=== PATIENT | female | born 1975 | race Caucasian/White ===

== ENCOUNTER 2024-12-15 11:31 | Emergency (ER) | payer BC, SELFPAY ==
--- NOTE | ~2024-12-15 | XR_ITS ---
EXAMINATION: XR chest 1V portable 12/15/2024 12:09 INDICATION: Shortness of breath and cough PROCEDURE: AP portable chest COMPARISON: No prior studies for comparison. FINDINGS: The lungs are clear. The cardiomediastinal silhouette is within normal limits. There are no pleural effusions. There is no pneumothorax suspected. IMPRESSION: 1: NO ACUTE CARDIOPULMONARY DISEASE. Reviewed, dictated and finalized at location B.
[2024-12-15 11:31] VITALS: BP 149/75; PULSE 90; RESP 20; TEMP 36.5; O2SAT 96
[2024-12-15 11:40] VITALS: O2SAT 97
--- NOTE | 2024-12-15 11:50 | ED_ITS ---
HPI - URI/Sore Throat General Chief Complaint: Upper Respiratory Infection Stated Complaint: shortness of breath; cough Time Seen by Provider: 12/15/24 11:50 Source: patient Mode of arrival: ambulatory Limitations: no limitations History of Present Illness HPI Narrative: 49-year-old female with a history of smoking presents to the ED with a 5 day history of -- cough which is nonproductive of sputum -- worsening shortness of breath /dyspnea on exertion no chest pain. No fever. She has had similar episode last year around this time. MD elicited complaint: cough Onset (ago): day(s) ( Five days) Consistency: constant Severity: moderate Able to tolerate fluids by mouth: Yes Exacerbating factors: exertion Relieving factors: nothing Associated symptoms: cough and shortness of breath Treatments prior to arrival: none Related Data Allergies Allergy/AdvReac Type Severity Reaction Status Date / Time No Known Allergies Allergy Mild Verified 12/15/24 11:49 Review of Systems 2 Review of Systems: All systems reviewed & are unremarkable except as noted in HPI and below Constitutional: Constitutional: Reports as per HPI and Reports no additional constitutional complaints Eyes: Eyes: Reports as per HPI and Reports no additional eye complaints ENT: Reports system reviewed and no additional complaints, except as documented and Reports as per HPI Cardiovascular: Cardiovascular: Reports as per HPI and Reports no additional cardiovascular complaints Respiratory: Respiratory: Reports as per HPI, Reports no additional respiratory complaints, Reports cough, Reports dyspnea and Reports wheezing Gastrointestinal: Gastrointestinal: Reports as per HPI and Reports no additional gastrointestinal complaints Genitourinary: Genitourinary: Reports no additional female genitourinary complaints and Reports as per HPI Musculoskeletal: Musculoskeletal: Reports no additional musculoskeletal complaints and Reports as per HPI Integumentary/Breasts: Skin/Breast: Reports system reviewed and no additional complaints, except as docu and Reports as per HPI Neurologic: Reports system reviewed and no additional complaints, except as documented and Reports as per HPI Psychiatric: Psychiatric: Reports no additional psychiatric complaints and Reports as per HPI Endocrine: Endocrine: Reports no additional endocrine complaints and Reports as per HPI Hematologic/Lymphatic: Hematologic/Lymphatic: Reports no additional hematologic/lymphatic complaints and Reports as per HPI Allergic/Immunologic: Allergic/Immunologic: Reports no additional allergic/immunologic complaints and Reports as per HPI [facility] Social History Social History (Updated 12/15/24 @ 12:20 by Uri Doyle MD) Social History: smoker Smoking packs per day: 1 Smoking cigarettes per day: 20.0 Years smoked: 29 Smoking pack-years: 29.00 Smoking status: Current every day smoker Tobacco type: cigarettes Exam 2 Narrative: pulse 90 blood pressure 142/69 oxygen saturation of 96% on room air. Afebrile temperature of 37?. Const: General: ill appearing Orientation/consciousness: patient oriented x3 Limitations: no limitations HENMT: Head: normal to inspection Ears: external ears normal F oli/Nose/Sinus: Normal external nose present Face and sinus: normal facial exam Mouth: Yes Normal oral and palatal mucosa present Throat: posterior oropharynx normal Eyes: Conjunctivae: conjunctivae normal Pupils: Equal, round and reactive pupils present EOM: EOMs intact bilaterally Direct Ophthalmoscopy: no photophobia Neck: Neck: normal visual inspection, no lymphadenopathy and no meningeal signs Chest: Chest palpation & inspection: normal inspection of the chest Resp: Auscultation: wheezes and diminished lung sounds Cardio: Rate: regular rate Rhythm: regular rhythm GI: GI Palp: Yes Soft to palpation Auscultation: normal bowel sounds O ther: No tenderness/ rigidity / rebound. : General: Yes no CVA tenderness Back/Spine/Pelvis: Back: no CVA tenderness Skin: General skin exam: normal color Rashes: no rashes Wounds: no wounds Neuro: General: patient oriented x3, moves all extremities, no meningeal signs, no focal motor deficits and CN's II-XI intact bilaterally Cranial nerves: Yes Nystagmus not present Speech: normal speech Gait exam (Neuro): Normal gait present Extrem: General: normal to inspection and no clubbing, cyanosis or edema Psych: Mental Status: mental status grossly normal Affect: normal affect Attitude: cooperative Course Course Emergency Course: Upper respiratory tract infection COPD exacerbation-- x-ray did not show any acute findings. The patient was noted to have a normal troponin and D-dimer. Will treat with prednisone, Symbicort and antibiotics Vital Signs Vital signs: Vital Signs Temperature 36.5 C 12/15/24 11:31 Pulse Rate 90 12/15/24 11:31 Respiratory Rate 20 12/15/24 11:31 Blood Pressure 149/75 H 12/15/24 11:31 Pulse Oximetry 96 12/15/24 11:31 Oxygen Delivery Room Air 12/15/24 11:31 Temperature 37.0 C 12/15/24 12:15 Pulse Rate 84 12/15/24 12:23 Respiratory Rate 20 12/15/24 12:23 Blood Pressure 142/69 H 12/15/24 12:15 Pulse Oximetry 98 12/15/24 12:23 Oxygen Delivery Room Air 12/15/24 12:15 MDM - URI/Sore Throat MDM Narrative Medical decision making narrative: COPD exacerbation upper respiratory tract infection Differential Diagnosis Differential diagnosis: Likely viral infection Medical Records Attestation: I reviewed the patient's medical records. Lab Data Attestation: I reviewed the patient's lab results. 12/15/24 12:07 12/15/24 12:07 Labs: Lab Results 12/15/24 Range/Units 12:07 WBC 11.3 H (4.8-10.8) K/mm3 RBC 4.34 (4.20-5.40) M/mm3 Hgb 13.4 (12.0-15.0) g/dL Hct 40.9 (35.0-49.0) % MCV 94.2 (78.0-102.0) fL MCH 30.9 (27.0-31.0) pg MCHC 32.8 (32-36) g/dL RDW 12.1 (11.6-14.4) % Plt Count 312 (150-420) K/mm3 MPV 8.9 L (9.2-11.8) fl Immature Gran % (Auto) 0.4 H (0.0-0.0) % Neut % (Auto) 72.0 H (50.0-70.0) % Lymph % (Auto) 21.3 (18.0-42.0) % [place] % (Auto) 5.2 (2.0-11.0) % Eos % (Auto) 0.7 L (1.0-6.0) % Baso % (Auto) 0.4 (0.0-1.0) % Lymph # (Auto) 2.40 (1.10-4.50) K/mm3 [place] # (Auto) 0.59 (0.10-0.90) K/mm3 Eos # (Auto) 0.08 (0.02-0.50) K/mm3 Baso # (Auto) 0.05 (0.00-0.10) K/mm3 Abs Immat Gran (auto) 0.04 H (0.00-0.00) K/mm3 Absolute Neuts (auto) 8.09 H (1.70-7.20) K/mm3 Absolute Nucleated RBC 0.00 (0.00-0.00) K/mm3 Nucleated RBC % 0.0 (0-0.0) % D-Dimer 0.39 (0.19-0.50) mg/L Sodium 140 (137-145) mmol/L Potassium 4.2 (3.4-5.0) mmol/L Chloride 110 H (98-107) mmol/L Carbon Dioxide 24 (22-30) mmol/L Anion Gap 6 (4-12) mmol/L BUN 8 (7-17) mg/dL Creatinine 0.64 L (0.7-1.0) mg/dL Estim Creat Clear Calc 84 ml/min Estimated GFR > 60 (59 - ) Glucose 90 (65-110) mg/dL Calculated Osmolality 288 (285-295) mOsm/kg Lactic Acid 0.8 (0.4-2.0) mmol/L Calcium 8.9 (8.4-10.2) mg/dL Magnesium 1.9 (1.6-2.3) mg/dL Total Bilirubin 0.6 (0.2-1.3) mg/dL AST 18 (14-36) U/L ALT 14 (6-35) U/L Alkaline Phosphatase 78 (38-126) U/L Troponin I < 0.012 (0.000-0.034) ng/mL NT-Pro-B Natriuret Pep 246 H (19.9-100) pg/mL Total Protein 7.1 (6.3-8.2) g/dL Albumin 4.1 (3.5-5.1) g/dL TSH Pending Influenza A (RT-PCR) Negative (Negative) Influenza B (RT-PCR) Negative (Negative) RSV (RT-PCR) Negative (Negative) SARS-CoV-2 RNA (RT-PCR) Negative (Negative) ECG Data EKG #1: ECG completion date: 12/15/24 ECG completion time: 12:20 Interpretation: normal sinus rhythm. Normal axis. No ST-T wave changes noted. Discharge Plan Discharge Clinical Impression: COPD exacerbation Patient Disposition: Home Condition: Stable Instructions: Antibiotic Form, COPD (Chronic Obstructive Pulmonary Disease) (ED) Patient Language: Bhutanese Prescriptions: New azithromycin [Zithromax] 250 mg tablet See Rx Instructions .ROUTE .COMPLEX Qty: 6 0RF Rx Instructions: For 250 mg dose pack: take 500 mg today (day 1), then 250 mg for 4 days (days 2-5) albuterol sulfate [Ventolin HFA] 90 mcg/actuation HFA aerosol inhaler 2 puff inhalation QID PRN (Reason: shortness of breath or wheezing) Qty: 8.5 0RF prednisone 20 mg tablet 20 mg PO BID Qty: 10 0RF Follow-up/Referrals: Rodriguez West MD [Primary Care Provider] - Time of Disposition: 12:56
--- OUTSIDE RECORDS SUMMARY | 2024-12-15 11:54 | XMS_ITS | Data Portability ---
Author Organization [facility] [email or web address], Main Office Address [address] [place] [address] Assessment No assessment recorded. Plan of Treatment Reminders Order Date Submit Date Provider Last Modified By Organization Details Last Modified Time Details Appointments None recorded. Lab brca (1+2) mutation analysis, blood or tissue [address] (Lab), [address] [place], [address], 4 08:12:09 CBC w/ auto diff [address] (Lab), [address] [place], [address], 4 08:12:09 factor V mutation, blood or tissue [address] (Lab), [address] [place], [address], 4 08:12:09 unlisted lab - PT factor II mutation [address] (Lab), [address] [place], [address], 4 08:12:09 prothrombin time [address] (Lab), [address] [place], [address], 4 08:12:09 Referral genetic counselor referral - Please call patient to schedule an appointment . Thank you 2023 024 [email or web address] Shakira Avalos MD, [address], [address], 08:47:54 Procedures colonoscopy screening (PROC) 2023 024 [email or web address] [facility] (Pre-Screen), [address] [place], [address], 08:08:26 colonoscopy screening (PROC) - *Please call pt to schedule* 2023 024 [email or web address] 256 Destiney Schofield MD, [address] [place], [address], 09:58:49 Surgeries None recorded. Imaging None recorded. Medication Orders Golytely 236 gram-22.74 gram-6.74 gram-5.86 gram oral solution 2023 024 [facility], [address] [place], [address], 12:15:29 nicotine 14 mg/24 hr daily transdermal patch 2023 024 [email or web address] [facility][id number], [address] [place], [address], 12:08:13 Patient TargetsNo targets recorded. Patient Instructions Encounter Date Encounter Id Patient Instructions Last Modified By Organization Details Last Modified Time 02/25/2024 [id number] GOLYTELY [email or web address] Not available 12:14:43 PT NEEDS A SCREENING COLON . R/O POLYP . RECOMMEND A COLONOSOPY RISKS BENEFITS AND COMPLICATIONS WERE EXPLAINED TO PT . ( BLEEDING , PERFORATION , INFECTION , ) PT VERBALIZES UNDERSTANDING AND IS WILLING TO PROCEDE . [email or web address] Not available 02/25/2024 12:14:50 Reason for Referral Genetic Counselor Referral f or Family history of breast cancer fam hx of many types of cancers Please call patient to schedule an appointment. Thank you Referring Physician: Aydin Restrepo, Family Medicine, Encounter Date: 11/04/2023 Results Created Date Observation Date Name Description Value Unit Range Abnormal Flag Note LastModifiedBy Organization Detail LastModifiedTime 11/18/19 24 12/08/2023 BRCAS SURE COMPR EHENS TOOTIE PANEL preauthoriza tion Commen t Prior autho rizat ion revie w compl ete Not Available [facility] ([facility]) [address] [place], [address], 12/15/2023 20:11:03 11/18/19 24 12/15/2023 BRCAS SURE COMPR EHENS TOOTIE PANEL specimen type Commen t Whole Blood Not Available [facility] ([facility]) [address] [facility], [place], [address], 12/15/2023 20:11:03 11/18/19 24 12/15/2023 BRCAS SURE COMPR EHENS TOOTIE PANEL 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 GENE VARIA NT BRCA1 NEGAT TOOTIE No patho genic varia nts were ident ified . BRCA2 NEGAT TOOTIE No patho genic varia nts were ident ified . Not Available [facility] ([facility]) [address] [facility], [place], [address], 12/15/2023 20:11:03 11/18/19 24 12/15/2023 BRCAS SURE COMPR EHENS TOOTIE PANEL interpretati on Commen t No patho genic varia nts were ident ified . Not Available [facility] ([facility]) [address] [place], [address], 12/15/2023 20:11:03 11/18/19 24 12/15/2023 BRCAS SURE COMPR EHENS TOOTIE PANEL additional clinical inform. Commen t NCCN Guide lines When BRCA1 and BRCA2 resul ts are negat tootie, addit ional testi ng may be helpf ul for some patie nts. Guide lines from the Natio nal Compr ehens tootie Cance r Netamandoo rk(R) (NCCN (R)) recom mend consi ginette g germl ine jia ic testi ng for addit ional breas t, ovari an, prost ate, and/o r pancr eatic cance r susce ptibi lity genes in patie nts meeti ng any of the crite yana in the table below . To discu ss compr ehens tootie jia ic testi ng, a [facility] Jia ic Coord inato r is avail able at [phone]. Breas t cance r diagn osed <= age 50 Ovari an cance r, pancr eatic cance r, male breas t cance r, or metas tatic /high -risk prost ate cance r at any age Breas t cance r diagn osed at any age and one of the follo wing: To aid in PARP inhib itor or olapa rib treat ment Tripl e negat tootie breas t cance r Multi ple prima ry breas t cance rs >= 3 total diagn oses of breas t cance r in patie nt and/o r close blood relat suzanne Breas t or prost ate cance r diagn osed at any age and one of the follo wing: >= 1 close relat tootie with breas t cance r <= age 50 or with tripl e negat tootie breas t cance r at any age >= 1 close relat tootie with ovari an, pancr eatic , male breas t, or metas tatic /high -risk prost ate cance r >= 2 close relat suzanne with breas t or prost ate cance r at any age Ashke nazi Jewis h ances try Patie nts with a first or secon d degre e relat tootie meeti ng certa in crite yana in this table may consi gavin germl ine jia ic testi ng as well. Compl ete crite yana may be found at NCCN. org. Not Available [facility] ([facility]) [address] [facility], [place], [address], 12/15/2023 20:11:03 11/18/19 24 12/15/2023 BRCAS SURE COMPR EHENS TOOTIE PANEL recommendati ons Commen t Jia ic couns thuan is recom syeda d to discu ss the poten tial clini margoth and/o r repro ducti ve impli catio ns of these resul ts, as well as recom menda tions for testi ng famil y membe rs. To acces s [facility] Jia ic Couns francisco dailey e visit https ://[facility] .[facility] orp.c om/ge netic -coun cyndi g or call [phone]). Not Available [facility] (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) [address] [facility], [place], [address], 12/15/2023 20:11:03 11/18/19 24 12/15/2023 BRCAS SURE COMPR EHENS TOOTIE PANEL methods and limitations Commen t Next- gener ation seque ncing : Genom ic regio ns of inter est are selec junior using a custo m captu re reage nt for targe t enric hment and seque nced via the Illum hilton(R ) next gener ation seque ncing platf orm. Regio ns of inter est inclu de all exons and intro n/exo n junct ions (+/-2 0 nucle otide s) of the BRCA1 (NM_0 07287 .3) and BRCA2 (NM_0 10455 .3) genes . Regio ns of inter est may be exten ded to inclu de intro moon seque nces known to harbo r patho genic /like ly patho genic varia nts. Seque ncing reads are align ed with the human genom e refer ence GRCh3 7/hg1 9 build . Minim um mean cover age is 40X. Any segme nt faili ng minim um read depth cover age is rescu ed by bi-di recti onal Sange r seque ncing to compl ete seque nce shawn sis. Varia nts, inclu ding SNVs and CNVs, are ident ified using a custo m bioin forma tics pipel ine. Repor junior varia nts: Patho genic and likel y patho genic varia nts and varia nts of uncer tain signi fican ce (VUS) are repor junior. Non-d eleti on varia nts are speci fied using the numbe ring and nomen clatu re recom syeda d by the Human Genom e Varia tion Socie ty (HGVS , http: //www .hgvs .org/ ). Benig n varia nts are not repor junior. Varia nt class ifica tion and confi rmati on are consi stent with ACMG stand ards and guide lines (Rich ards, PMID: [phone]; Taty, PMID: 22648 774). Detai led varia nt class ifica tion infor matio n is avail able upon reque st. A varia nt of uncer tain signi fican ce (VUS) shoul d not be used in clini margoth decis ion makin g; a VUS is class ified based on inade quate or confl ictin g evide nce regar ding its patho genic ity or clini margoth relev ance. Limit ation s: Techn ologi es used do not detec t germl ine mosai cism and do not rule out the prese nce of large chrom osoma l aberr ation s, inclu ding rearr angem ents, gene fusio ns, or varia nts in regio ns or genes not inclu ded in this test, or possi ble inter / intra genic inter actio ns betwe en varia nts. Varia nt class ifica tion and/o r inter preta tion may vazquez e over time if more infor matio n becom es avail able. False posit tootie or false negat tootie resul ts may occur for reaso ns that inclu de: jia ic varia nts, pseud ogene inter feren ce, techn ical handl ing, blood trans fusio ns, bone marro w trans plant ation , misla belin g of sampl es, or misty eous repre senta tion of famil y relat ionsh ips. For heter ozygo us varia nts in the same gene the assay canno t deter mine wheth er they are on the same or diffe rent chrom osome ; to deter mine phase and clini margoth signi fican ce, rarel y, paren channing testi ng may be requi red. Exact break point s of exon- level delet ions/ dupli catio ns are not deter mined . The prese nce of an inher ited cance r syndr ome due to a diffe rent jia ic cause canno t be ruled out. Any inter preta tion shoul d be clini niki corre lated with infor matio n about the patie nts prese ntati on and relev ant famil y histo ry. This test was devel oped and its perfo rmanc e giancarlo cteri stics deter mined by [facility]. It has not been clear ed or appro meche by the Food and Drug Admin istra tion. Not Available [facility] ([facility]) [address] [facility], [place], [address], 12/15/2023 20:11:03 11/18/19 24 12/15/2023 BRCAS SURE COMPR EHENS TOOTIE PANEL references Commen t 1. NCCN Jia ic/Fa milia l High Risk Asses sment : Breas t, Ovari an, and Pancr eatic . Versi on 3. 2. Dariusz riggins et al. BRCA1 - and BRCA2 -Asso ciate d Hered itary Breas t and Ovari an Cance r. GeneR elton s, updat ed 2021. PMID: 425. Not Available [facility] ([facility]) [address] [facility], [place], [address], 12/15/2023 20:11:03 11/18/1912/15/2023 BRCAS SURE COMPR EHENS TOOTIE PANEL released by April hoyt Candelaria Arenas nent Type Perfo rmed At Labor atory Direc tor Techn ical Labor atory Anjen Chenn , compo nent, Corpo ratio n of , PhD proce ssing [facility], [address] , [place], [address] Techn ical Labor atory Anjen Chenn , compo nent, Corpo ratio n of , PhD shawn sis [facility], [address] , [place], [address] Profe ssion al Labor atory Anjen Chenn , compo nent Corpo ratio n of , PhD [facility], [address] [facility] , [place], [address] Unique howe, PhD, [facility] Not Available [facility] ([facility]) [address] [place], [address], 12/15/2023 20:11:03 11/18/19 24 12/15/2023 BRCAS SURE COMPR EHENS TOOTIE PANEL pdf . Not Available [facility] ([facility]) [address] [place], [address], 12/15/2023 20:11:03 Result Notes None recorded. Problems Name Problem SNOMED Code Status Onset Date Resolution Date Notes Provider Name and Address Organization Details Recorded Time Colitis 02066244 Active 2023 Rebekah Mendoza RN null, [facility] 4 11:29:13 Candidiasis of mouth 14773419 Active 2023 LISA Escalona [address] [facility] [address], [place], [address] , [facility] 4 11:55:10 Oral lesion 8277818321460 Active 2023 LISA Escalona [address], [place], [address], [facility] [email or web address] 4 11:58:22 Smoker 80708794 Active 2023 Aydin Restrepo MACIE-Bishop [address], [place], [address], [facility] [place] 4 12:04:25 Problem Notes None recorded. Procedures Surgical History Date Name Laterality Status Provider Name and Address Organization Details Recorded Time Tubal Ligation completed Rebekah santos RN [facility] [email or web address] 11/04/2023 11:28:24 Imaging Results None recorded. Procedure Notes None recorded. Medical Equipment None Reported. Medications Name Sig Start Date Stop Date Status Note LastModified by Organization Details LastModified Time nicotine 14 mg/24 hr daily transderma l patch Apply 1 patch every day by transderm al route. 2023 active Not Available Not Available Not Avai lable fentanyl active bad reaction in ED before Not Available Not Available Not Available peg 3350-elect rolytes 236 gram-22.74 gram-6.74 gram-5.86 gram solution DIRECTED active Not Available Not Available No t Available GaviLyte-N 420 gram oral solution take as directed 2023 active Not Available Not Available Not Avai lable Vitals Date Recorded Body weight Body mass index (BMI) Body height Body temperature Heart rate Oxygen saturation Oxygen saturation in Arterial blood by Pulse oximetry Systolic blood pressure Diastolic blood pressure Provider Name and Address Organization Details Last Updated DateTime 4 09758 g 29.7 kg/m2 154.94 cm 99.6 [degF] 85 /min 99 % 99 % 128 mm[Hg] 72 mm[Hg] Rebekah Mendoza RN [facility] [email or web address] 4 11:31:25 Date Recorded Body height Body mass index (BMI) Body weight Heart rate Oxygen saturation Oxygen saturation in Arterial blood by Pulse oximetry Systolic blood pressure Diastolic blood pressure Provider Name and Address Organization Details Last Updated DateTime 4 154.94 cm 29.7 kg/m2 69515 g 84 /min 99 % 99 % 126 mm[Hg] 70 mm[Hg] DONAVAN Hayes [facility] [facility] 11:45:42 Social History Question Answer Notes LastModified by Organizat ion Details LastModified Time Tobacco Smoking Status Current Every Day Smoker Rebekah Mendoza RN [facility], [facility] [facility] 11/04/2023 11:27:58 At What Age Did You Start Smoking Tobacco? 15 Information not available 11/04/2023 How Much Tobacco Do You Smoke? 1 PPD Information not available 11/04/2023 How Many Years Have You Smoked Tobacco? 30 Information not available 11/04/2023 Sex: Unknown Functional Status None recorded. Mental Status None recorded. Family History Relationship Description Onset Age of this Age Resolved Age Notes LastModified by Organization Details LastModified Time Father Type 2 diabetes mellitus Not available 2023 11:24:00 Father History of hypertension Not available 03/2024 11:24:20 Father Malignant neoplasm of lung Not available 2023 11:24:44 Maternal Grandmother Type 2 diabetes mellitus Not available 2023 11:24:00 Maternal Grandfather Type 2 diabetes mellitus Not available 2023 11:24:00 Mother History of hypertension Not available 03/2024 11:24:20 Mother Kidney disease Not available 2023 11:25:34 Paternal Aunt Malignant neoplasm of brain Not available 2023 11:25:06 Paternal Aunt Malignant tumor of breast Not available 2023 11:25:23 Paternal Uncle Malignant neoplasm of brain Not available 2023 11:25:06 Maternal Aunt Malignant tumor of breast Not available 2023 11:25:23 Sister Blood coagulation disorder Not available 2023 11:26:06 Sister Blood coagulation disorder Not available 2023 11:26:23 Medical History No medical history recorded. Gynecological HistoryNo gynecological history recorded. Obstetrics History GPAL:G 0 P 0 0 0 0 Past Encounters Encounter ID Performer Location Encounter Start Date Encounter Closed Date Diagnosis/Indication Diagnosis SNOMED-CT Code Diagnosis ICD10 Code Diagnosis Note [id number] Lilly Paul MD [facility] Primary Care Sunny abdullahi [address] [facility] [address] [place] [address] 11/04/2023 11:10:36 11/04/2023 12:20:41 Family history of blood coagulation disorder [id number] 24890 Z83.2 pt notes family history of factor 2 gene mutation-s he is wanting to rule out this diagnosis- labs obtained Family his tory of breast cancer 236235167 Z80.3 -pt notes hx of many types of cancers-sh e is wanting a referral to genetic counselor- labs obtained Screening for malignant neoplasm of colon 687048047 Z12.11 -hx of colitis-wa s told that she needed to get a colonoscop y every 10 years-colo noscopy ordered Oral lesion 8617645115 107 K13.70 -chronic, untreated for the last 10 years-caus es poor taste-uses tongue scraper-no pain-does not drink water/arlene y, drink coffee all day-encour aged to increase water intake to 6-8 glasses/da y Smoker 57368317 F17.200 -currently smokeing close to a pack per day-has tried using the step 1 nicotine patches-tr ial 14mg patch-f/u when wanting to make changes [id number] Destiney Schofield MD [facility] General Surgery [address] [facility], [facility] [address] [place] [address] 02/25/2024 11:42:34 02/25/2024 12:04:46 Screening for malignant neoplasm of colon 635780851 Z12.11 Health Concerns Section Related Observation LastModified by Organization Detai ls LastModified Time None Recorded Concern Status LastModified by Organization Details LastModified Time None Recorded Advance Directives Directive None Recorded Payers Encounter Date Sequence Insurance Name Policy Number Policy Butler Covered Member ID Butler Member ID Guarantor Name 11/04/2023 1 [facility] (MEDICAID REPLACEMENT - HMO) [id number] Kylie Anna [id number] Kylie Anna 02/25/2024 1 [facility] (MEDICAID REPLACEMENT - HMO) [id number] Kylie Anna [id number] Kylie Anna Notes Date Note Type Note Provider Name and Address Organization Details Recorded Time 11/04/2023 text/html pt is here to establish care LISA Escalona [address], [place] [address], [place], [address], [facility] 11/04/2023 12:08:41 02/25/2024 text/html PT WAS SEEN IN THE OFFICE TODAY FOR COLON SCREENING . PT DENIES ABD PAIN /N/V/D/BLEEDING /WT LOSS. PT LAST COLON WAS X 18 YRS. PT REPORTS IBS-C. TAKING CRANBERRY JUICE . Destiney Schofield MD [address], [facility] [address], [place], [address], [facility] 02/25/2024 12:15:19 OBGyn Episode No OBEpisode recorded.
--- OUTSIDE RECORDS SUMMARY | 2024-12-15 11:54 | XMS_ITS | Clinical Summary ---
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 Gender Identity Not on file Sexual Orientation Not on file Plan of Treatment Health Maintenance Due Date Last Done Comments Hepatitis C Virus (HCV) Screening 1977 TdaP Immunization 1977 Hepatitis B Immunization (1 of 3 - 19+ 3-dose series) 1996 Pap Smear 1998 Cervical Cancer Screening (CCS) 2007 HPV/Cotest 2007 Discussion re Starting/Frequ ency of Mammograms 2017 Colonoscopy 2022 Colorectal Cancer Screening 2022 Influenza Immunization (#1) 2024 SARS-COV-2 Immunization ( season) 2024 Respiratory Syncytial Virus (RSV) Immunization (Adult) (1 - 1-dose 75+ series) 2052 Meningococcal Immunization (ACWY) Aged Out No longer eligible based on patient's age to complete this topic Pneumococcal Immunization Combined Aged Out No longer eligible based on patient's age to complete this topic Rotavirus Immunization Aged Out No lo nger eligible based on patient's age to complete this topic
--- NOTE | 2024-12-15 11:57 | ECG_ITS ---
Test Date: 2024-12-15 12:20:40 Measurements Intervals [place] Rate: 80 P: 76 GA: 135 QRS: 69 QRSD: 76 T: 77 QT: 368 QTc: 426 Interpretive Statements SINUS RHYTHM CANNOT RULE OUT OLD INFERIOR MYOCARDIAL INFARCTION ABNORMAL ECG No previous ECG available for comparison Electronically Signed On 12-15-2024 13:23:21 CDT by Tad Madrid M.D.
[2024-12-15 12:12] LABS: Basophils Absolute Auto 0.05 K/mm3 (0.00-0.10); Basophils Percent Auto 0.4 % (0.0-1.0); Eosinophils Absolute Auto 0.08 K/mm3 (0.02-0.50); Eosinophils Percent Auto 0.7 % (1.0-6.0); Hematocrit 40.9 % (35.0-49.0); Hemoglobin 13.4 g/dL (12.0-15.0); Immature Granulocyte Absolute 0.04 K/mm3 (0.00-0.00); Immature Granulocyte Percent A 0.4 % (0.0-0.0); Lymphocytes Percent Auto 21.3 % (18.0-42.0); Mean Corpuscular HGB Conc 32.8 g/dL (32-36); Mean Corpuscular Hemoglobin 30.9 pg (27.0-31.0); Mean Corpuscular Volume 94.2 fL (78.0-102.0); Mean Platelet Volume 8.9 fl (9.2-11.8); Monocytes Absolute Auto 0.59 K/mm3 (0.10-0.90); Monocytes Percent Auto 5.2 % (2.0-11.0); Neutrophils Absolute Auto 8.09 K/mm3 (1.70-7.20); Platelet Count Result 312 K/mm3 (150-420); Red Blood Count 4.34 M/mm3 (4.20-5.40); Red Cell Distribution Width 12.1 % (11.6-14.4); White Blood Count 11.3 K/mm3 (4.8-10.8)
[2024-12-15] MEDS: methylPREDNISolone SOD SUCC 125 MG VIAL IM (12:13)
[2024-12-15 12:15] VITALS: BP 142/69; PULSE 85; RESP 20; TEMP 37; O2SAT 98
[2024-12-15] MEDS: IPRATROPIUM 0.5 MG/ALBUTEROL SULFATE 2.5 MG AMPUL.NEB 3 ML INHALATION (12:15)
[2024-12-15 12:16] VITALS: PULSE 90; RESP 20; O2SAT 96
[2024-12-15 12:22] LABS: D Dimer 0.39 mg/L (0.19-0.50)
[2024-12-15 12:23] VITALS: PULSE 84; RESP 20; O2SAT 98
[2024-12-15 12:25] LABS: Lactic Acid Reflex 0.8 mmol/L (0.4-2.0)
[2024-12-15 12:26] LABS: Alanine Aminotransferase 14 U/L (6-35); Albumin Level 4.1 g/dL (3.5-5.1); Alkaline Phosphatase 78 U/L (38-126); Anion Gap 6 mmol/L (4-12); Aspartate Amino Transferase 18 U/L (14-36); Bilirubin,Total 0.6 mg/dL (0.2-1.3); Blood Urea Nitrogen 8 mg/dL (7-17); Calcium 8.9 mg/dL (8.4-10.2); Carbon Dioxide 24 mmol/L (22-30); Chloride 110 mmol/L (98-107); Estimated CRCL calculation 84 ml/min; Estimated Glomerular Filt Rate > 60; Glucose 90 mg/dL (65-110); Osmolality Calculated 288 mOsm/kg (285-295); Potassium 4.2 mmol/L (3.4-5.0); Sodium 140 mmol/L (137-145); Total Protein 7.1 g/dL (6.3-8.2)
--- OUTSIDE RECORDS SUMMARY | 2024-12-15 12:26 | XMS_ITS | Clinical Summary ---
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
[2024-12-15 12:27] LABS: Magnesium 1.9 mg/dL (1.6-2.3)
[2024-12-15 12:35] LABS: NT Pro B Type Natriuretic Pept 246 pg/mL (19.9-100)
[2024-12-15 12:39] LABS: Troponin I < 0.012 ng/mL (0.000-0.034)
[2024-12-15 12:49] LABS: Influenza A QL RT-PCR Negative (Negative); Influenza B QL RT-PCR Negative (Negative); RSV RNA, RT-PCR Negative (Negative); SARS-CoV-2 RNA PCR Negative (Negative)
[2024-12-15 12:58] LABS: Thyroid Stimulating Hormone 0.963 uIU/mL (0.465-4.680)
[2024-12-15 13:30] VITALS: BP 113/72; PULSE 86; RESP 16; TEMP 36.6; O2SAT 96
== END 2024-12-15 13:40 | disposition home or self-care (01) ==
PROVIDERS: Emergency Provider Internal Medicine Critical Care Medicine; PCP Family Medicine
DX: J44.1 Chronic obstructive pulmonary disease with (acute) exacerbation (principal); F17.210 Nicotine dependence, cigarettes, uncomplicated; Z20.822 Contact with and (suspected) exposure to COVID-19
CPT/HCPCS: 36415; 71045; 80053; 83605; 83735; 83880; 84443; 84484; 85025; 85380; 87637; 93005; 94640; 96372; 99284; J2919